=== PATIENT | male | born 1965 | race African-American/Black ===

== ENCOUNTER 2018-01-31 03:38 | Emergency (ER) | payer OTHER ==
[~2018-01-31] VITALS: Ht 170.2 cm; Wt 115.7 kg
[2018-01-31 04:55] LABS: CALCIUM 8.9 mg/dL (8.5-10.1)
[2018-01-31] MEDS ORDERED: HYDROCODONE-AP1 EAC6 PO (04:59)
[2018-01-31] MEDS ORDERED: FLEXERIL PO (04:59)
[2018-01-31 05:30] VITALS: BP 145/87
== END 2018-01-31 05:30 | disposition home or self-care (01) ==
LOC: M.ERS 03:38
PROVIDERS: Emergency Medicine Emergency Medical Services
DX: M54.5 Low back pain (principal); G47.30 Sleep apnea, unspecified; M17.0 Bilateral primary osteoarthritis of knee; Z90.49 Acquired absence of other specified parts of digestive tract